=== PATIENT | male | born 1980 | race Caucasian/White ===

== ENCOUNTER 2018-09-12 12:24 | Emergency (ER) | payer SELFPAY ==
[~2018-09-12] VITALS: Ht 170.2 cm; Wt 75.0 kg
[~2018-09-12 12:24] MED LIST: BACTRIM DS1 TAB OR; DOXYCYC MONO100 MG OR; LORTAB 10 OR
[2018-09-12] MEDS ORDERED: PERMETHRIN5 % EX (13:07)
[2018-09-12] MEDS ORDERED: CEPHALEXIN500 M1 PO (13:07)
[2018-09-12 13:37] VITALS: BP 141/97
== END 2018-09-12 13:37 | disposition home or self-care (01) | DRG 607 ==
LOC: ED 12:24
DX: B86 Scabies (principal); L03.114 Cellulitis of left upper limb; L03.113 Cellulitis of right upper limb; F17.200 Nicotine dependence, unspecified, uncomplicated

== ENCOUNTER 2018-09-18 09:51 | Emergency (ER) | payer SELFPAY ==
[~2018-09-18] VITALS: Ht 170.2 cm; Wt 70.0 kg
[~2018-09-18 09:51] MED LIST changes: +CEPHALEXIN500 M1 PO; +PERMETHRIN5 % EX
[2018-09-18] MEDS ORDERED: AMOXICILLIN500 MG PO (10:01)
[2018-09-18 10:11] VITALS: BP 120/76
== END 2018-09-18 10:14 | disposition home or self-care (01) | DRG 603 ==
LOC: ED 09:51
DX: L01.00 Impetigo, unspecified (principal); F17.200 Nicotine dependence, unspecified, uncomplicated

== ENCOUNTER 2019-09-22 17:51 | Observation (INO) | payer SELFPAY ==
[~2019-09-22] VITALS: Ht 170.2 cm; Wt 66.1 kg
[~2019-09-22 17:51] MED LIST changes: +AMOXICILLIN500 MG PO
--- NOTE | 2019-09-22 18:01 | NUR ---
PATIENT AMBULATED TO ROOM WITH STEADY GAIT AND PHYSICIAN NOTIFIED OF PATIENT STATUS
--- NOTE | 2019-09-22 18:10 | NUR ---
IV INITATED AND LABS COLLECTED. PT REPORTS INTERMITTENT RIGHT FLANK PAIN WITH NAUSEA AND VOMITING AFTER BEOMING OVERHEATED YESTERDAY. HE ALSO STATES THAT HIS VOMIT WAS BLOODY WHEN ASKED HE STATED IT WAS BROWN IN COLOR. PT WAS UPDATED ON REMAINING NPO AND NEED FOR URINE SAMPLE. PT IS UNABLE TO URINATE AT THIS THIS TIME. CALL FLOREZ WITHIN REACH, WILL CONTINUE TO MONITOR.
[2019-09-22 18:28] LABS: HEMATOCRIT 45.8 % (39.0-50.0); HEMOGLOBIN 15.2 g/dl (14.0-18.0); IMMATURE GRANULOCYTES 0.4 % (0.0-5.0); MEAN CELL VOLUME 86.3 fL CALC (80.0-100.0); MEAN CORPUSCULAR HGB 28.6 pG CALC (26.0-32.0); MEAN CORPUSCULAR HGB CONC 33.2 g/dL CAL (32.0-36.0); NEUT# 10.43 thou/uL (1.82-7.42); RED BLOOD COUNT 5.31 mill/uL (4.70-6.10)
--- NOTE | 2019-09-22 18:44 | NUR ---
PT RESTING IN STRETCHER IN NAD AND DENIES ANY NAUSEA OR NEEDS AT THIS TIME. CALL FLOREZ WITHIN REACH.
--- NOTE | 2019-09-22 18:49 | NUR ---
PT REPORT TO TRAVIS SANCHES.
--- NOTE | 2019-09-22 18:51 | NUR ---
HAND OFF REPORT RECEIVED, PATIENT AWAKE AND ALERT, NO C/O PAIN OR DISCOMFORT, NO S/S OF DISTRESS, RESPIRATIONS EVEN AND UNLABORED, AWAITING URINE SAMPLE.
--- NOTE | 2019-09-22 19:02 | NUR ---
PATIENT STATES UNABLE TO PRODUCE URINE SAMPLE AT THIS TIME.
[2019-09-22 19:06] LABS: ALBUMIN 5.1 g/dL (3.2-5.0); BILIRUBIN, TOTAL 0.6 mg/dL (0.0-1.4); POTASSIUM 4.7 mmol/l (3.5-5.1); TOTAL PROTEIN 9.2 g/dL (6.3-8.2)
[2019-09-22 19:16] LABS: CREATININE 6.7 mg/dL (0.7-1.3)
[2019-09-22 19:20] LABS: URINE BILIRUBIN - DIPSTICK NEGATIVE (NEGATIVE); URINE BLOOD DIPSTICK LARGE (NEGATIVE); URINE COLOR YELLOW; URINE GLUCOSE - DIPSTICK NEGATIVE (NEGATIVE); URINE KETONE NEGATIVE (NEGATIVE); URINE LEUK ESTERASE NEGATIVE (NEGATIVE); URINE NITRITE - DIPSTICK NEGATIVE (Negative); URINE PROTEIN - DIPSTICK 100 mg/dL (NEG-TRACE); URINE SPECIFIC GRAVITY >=1.030; URINE UROBILINOGEN - DIPSTICK 0.2 E.U./dL (0.2)
[2019-09-22 19:31] LABS: URINE AMORPH SEDIMENT FEW hpf (NONE-FER); URINE RBC TNTC RBC/hpf (0-5); URINE SQUAMOUS EPITHELIAL CELL FEW EPI/hpf (0-FEW)
--- NOTE | 2019-09-22 20:18 | NUR ---
RESTING QUIETLY WITH EYES CLOSED, RESPIRATIONS EVEN AND UNLABORED, NO C/O PAIN OR DISCOMFORT, NO S/S OF DISTRESS NOTED, LIGHTS DIMMED FOR COMFORT, PO FLUIDS GIVEN AT PATIENT REQUEST.
[2019-09-22 20:35] LABS: CPK 1554 u/l (52-200)
--- NOTE | 2019-09-22 20:56 | NUR ---
PATIENT AWAITING DIAGNOSTIC RESULTS FOR INPATIENT ROOM ASSIGNMENT
[2019-09-22 21:04] LABS: MYOGLOBIN 4936 ng/mL (0 - 121)
--- NOTE | 2019-09-22 21:08 | NUR ---
ATTEMPTED TO GIVE REPORT TO INPATIENT NURSE, NURSE UNAVAILABLE AT THIS TIME.
--- NOTE | 2019-09-22 21:45 | NUR ---
HAND OFF REPORT GIVEN TO TRAVIS SCHMITT FOR [id number]
[2019-09-22 21:50] VITALS: BP 144/88
--- NOTE | 2019-09-22 21:52 | NUR ---
PT ARRIVED TO MED SURG UNIT VIA STRETCHER ACCOMPANIED BY ED NURSE. PT APPEARS TO BE IN STABLE CONDITION. PT SELF AMBULATED TO BED FROM STRETCHER. IV FLUIDS ARE RUNNING, ALMOST COMPLETE TO 20 IN RAC/SITE APPEARS HEALTHY. V/S ARE BEING ASSESSED, PT ORIENTED TO ROOM, CALL SYSTEM, LIGHTS AND BED.
--- NOTE | 2019-09-22 22:00 | NUR ---
PATIENT TAKEN TO INPATIENT ROOM 269 VIA STRETCHER, AWAKE AND ALERT, NO C/O PAIN OR DISCOMFORT, NO S/S OF DISTRESS, AMBULATORY WITHOUT ASSITANCE TO INPATIENT BED. Admission Note Report Given to: KESHIA Transported by: Wheelchair X Stretcher Transported with: X Nurse Transporter X Patent IV O2 Reroller Hand Location: ICU X MS2
--- NOTE | 2019-09-22 22:10 | NUR ---
URINAL EMPTIED OF 200CC OF YELLOW URINE. PT ASKING FOR FOOD/PROVIDED. PT REPORTS DRINKING COKE AT BEDSIDE W/OUT NAUSEA OR VOMITING. DISCUSSED DIET AND HISTORY OF VOMITING OVER THE LAST DAY REPORTED BY PT, VERBALIZED UNDERSTANDING AND ASKED FOR FOOD AND DRINK REGARDLESS. PT LOC TO CIRCUMSTANCES AND IS STABLE ON FEET. DENIES PAIN/N/V AND REPORTS "FEELING MUCH BETTER," SINCE ARRIVING TO THE HOSPITAL. IV FLUIDS ADMINISTERED.
--- NOTE | 2019-09-22 23:38 | NUR ---
PT ASKING FOR NEW IV SITE. REPORTS THE EXISTING SITE IS "SORE" SITE APPEARS HEALTHY, BUT PT REPORTS THAT IT HURTS WHEN HE BENDS HIS ARM. NEW SITE ACCESSED BY SUBSTATION SUPERVISOR TASKING ON FLOOR AND OLD SITE REMOVED. PT DENIES ANY OTHER NEEDS AT THIS TIME. CALL LIGHT IN HAND.
--- NOTE | 2019-09-23 03:45 | NUR ---
PT CALLED FOR BANDAIDE FOR A SMALL SCRATCH. CONTENT ASSISTANT OBTAINING V/S AT THIS TIME. DENIES ANY OTHER DISTRESSES OR NEEDS.
[2019-09-23 04:00] VITALS: BP 125/71
[2019-09-23 04:43] LABS: IMMATURE GRANULOCYTES 0.3 % (0.0-5.0); MEAN CELL VOLUME 85.7 fL CALC (80.0-100.0); MEAN CORPUSCULAR HGB 28.9 pG CALC (26.0-32.0); MEAN CORPUSCULAR HGB CONC 33.7 g/dL CAL (32.0-36.0); NEUT# 5.65 thou/uL (1.82-7.42); RED BLOOD COUNT 3.84 mill/uL (4.70-6.10); RED CELL DISTRI WIDTH 14.1 % (11.5-15.5)
[2019-09-23 04:51] LABS: HEMATOCRIT 32.9 % (39.0-50.0); HEMOGLOBIN 11.1 g/dl (14.0-18.0)
[2019-09-23 05:02] LABS: CREATININE 3.5 mg/dL (0.7-1.3); POTASSIUM 3.3 mmol/l (3.5-5.1)
[2019-09-23 08:04] VITALS: BP 121/71
--- NOTE | 2019-09-23 08:36 | NUR ---
PT IN BED WITH EYES OPEN AND ABLE TO VERBALIZE NEEDS. FLUIDS CONTINUE TO REUN AT 150ML/HR A ND PT TOLERATING WELL. MEAL AND FLUID INTAKE ADEQUATE AND PT DENIES PAIN AND DISCOMFORT. CALL LIGTH IS WITHIN REACH. WILL CONTINUE TO OBSERVE
[2019-09-23 15:00] VITALS: BP 118/73
--- NOTE | 2019-09-23 15:37 | NUR ---
PT SITTING UP IN BED WITH EYES OPEN. ABLE TO VERBALIZE NEEDS. NORMAL SALINE CONTINUES TO RUN AT 150ML/HR AND PT TOLERATES WELL. DENIES PAIN/DISCOMFORT. CONTINENT OF B/B AND AMBUALTES WITH NO ASSIST NEEDED. WILL CONTINUE TO OBSERVE.
--- NOTE | 2019-09-23 18:42 | NUR ---
PT IN BED WITH EYES OPEN AND ABLE TO MAKE NEEDS KNOWN. SKIN WARM TO TOUCH. MEDICATIONS GIVEN AND TOLERATED WELL. CONTINUES ON NORMAL SALINE 0.9% AT 150ML/HR AND TOLERATING WELL. NO RESPIRATORY CONCERNS NOTED. COMPLAINTS OF SORE THROAT AT DINNER AND ENCOURAGED WARM WATER RINSES FOR COMFORT AND WILL CONTINUE TO OBSERVE. AFEBRILE. NO COUGH NOTED. WILL CONTINUE TO OBSERVE.
--- NOTE | 2019-09-23 18:47 | NUR ---
PT EDUCATION DONE WITH PT ON NICOTENE PATCH AND SIDE EFFECTS VERSUS REMOVING PATCH IF HE WILL CONTINUE SMOKING AND HE STATED HE UNDERSTOOD. NICOTINE PATCH ON RIGHT UPPER ARM.
[2019-09-23 19:04] VITALS: BP 138/83
--- NOTE | 2019-09-23 20:15 | NUR ---
PT ASSESSMENT COMPLETED AT THIS TIME. PT LAYING IN BED WATCHING TV. REPORTS MILD "SCRATCHY THROAT FROM THROWING UP THE OTHER DAY." WARM CHICKEN BROTHER PROVIDED FOR COMFORT. PT DENIED ANY NEED FOR MEDICATIONS. IV FLUIDS REPLENISHED AT THIS TIME. NO OTHER S/O DISTRESS OR NEEDS NOTED. PT WAS ENCOURAGED TO CALL NEEDS ARISE, HE VERBALIZED UNDERSTANDING AND HAS CALL LIGHT W/IN REACH.
--- NOTE | 2019-09-24 00:09 | NUR ---
PT SLEEPING, NO S/O DISTRESS NOTED. LIGHTS AND TV ARE ON, BUT PT EYES ARE CLOSED.
--- NOTE | 2019-09-24 02:40 | NUR ---
IVPUMP SOUNDING, IVF REPLENISHED AT THIS TIME. PT PROVIDED BEEF BROTH FOR COMFORT OF "SCRATCHY THROAT". DENIES ANY OTHER NEEDS, ENCOURAGED TO CALL NEEDS MAY ARISE.
[2019-09-24 04:31] VITALS: BP 139/86
[2019-09-24 08:10] VITALS: BP 134/89
[2019-09-24 08:41] LABS: HEMATOCRIT 34.3 % (39.0-50.0); HEMOGLOBIN 11.1 g/dl (14.0-18.0); MEAN CELL VOLUME 88.6 fL CALC (80.0-100.0); MEAN CORPUSCULAR HGB 28.7 pG CALC (26.0-32.0); MEAN CORPUSCULAR HGB CONC 32.4 g/dL CAL (32.0-36.0); RED BLOOD COUNT 3.87 mill/uL (4.70-6.10); RED CELL DISTRI WIDTH 14.6 % (11.5-15.5)
[2019-09-24 10:31] LABS: ANION GAP 8 (6-22 (CALC)); BUN 13 mg/dL (9-20); CARBON DIOXIDE 27 mmol/l (22-30); CHLORIDE 103 mmol/l (95-108); SODIUM 133 mmol/l (137-146)
[2019-09-24 10:34] LABS: BUN/CREATININE RATIO 14 (12-20 (CALC)); CREATININE 0.9 mg/dL (0.7-1.3); GFR > 60 ML/MIN (>=60 (CALC)); GFR FOR AFR.AMER. > 60 ML/MIN (>=60 (CALC)); POTASSIUM 4.5 mmol/l (3.5-5.1)
--- NOTE | 2019-09-24 11:21 | NUR ---
CAROL RECEIVED FROM KESHIA. PT SLEEPING IN BED . AWAKENS TO STIMULI. DENIES PAIN. POC REVIEWED. ENCOURAGED TO VERBALIZE CONCERNS STATES UNDERSTANDING OF SAFETY MEASURES. CALL LIGHT WITHIN REACH.
--- NOTE | 2019-09-24 11:23 | NUR ---
IV site discontinued, cath intact. No edema , no redness, voices no discomfort.
--- NOTE | 2019-09-24 11:36 | NUR ---
Discharge instructions given. Patient verbalizes understanding of same. Discharged in stable condition via Ambulatory to Home with *Other. All belongings sent with pt.
--- NOTE | 2019-09-24 15:04 | NUR ---
Discharge instructions given. Patient verbalizes understanding of same. Discharged in stable condition via 5Ambulatory to Home with staff. All belongings sent with pt.
== END 2019-09-24 11:36 | disposition home or self-care (01) | DRG 683 ==
LOC: ED 17:51 → ED-I 20:20 → ED 20:32 → ED-I 20:33 → MS2 21:00
PROVIDERS: Family Medicine; Internal Medicine; Nurse Practitioner Family; ADMIT Internal Medicine; ATTEND Internal Medicine
DX: N17.9 Acute kidney failure, unspecified (principal); M62.82 Rhabdomyolysis; E86.0 Dehydration; E87.6 Hypokalemia; F11.10 Opioid abuse, uncomplicated; F15.10 Other stimulant abuse, uncomplicated; F16.10 Hallucinogen abuse, uncomplicated; F17.200 Nicotine dependence, unspecified, uncomplicated; X30.XXXA Exposure to excessive natural heat, initial encounter; Z20.828 Contact with and (suspected) exposure to other viral communicable diseases
CPT/HCPCS: G0378; S0164

== ENCOUNTER 2021-07-05 09:57 | Emergency (ER) | payer BC ==
[2021-07-05] VITALS (13 sets, daily range): BP systolic 130–173; BP diastolic 92–119
[~2021-07-05] VITALS: Ht 177.8 cm; Wt 72.0 kg
[2021-07-05 10:32] LABS: HEMATOCRIT 38.8 % (39.0-50.0); HEMOGLOBIN 12.4 g/dl (14.0-18.0); IMMATURE GRANULOCYTES 0.5 % (0.0-5.0); MEAN CORPUSCULAR HGB 30.3 pG CALC (26.0-32.0); NEUT# 2.12 thou/uL (1.82-7.42); RED BLOOD COUNT 4.09 mill/uL (4.70-6.10); RED CELL DISTRI WIDTH 18.5 % (11.5-15.5)
[2021-07-05 10:43] LABS: MEAN CELL VOLUME 94.9 fL CALC (80.0-100.0)
[2021-07-05 10:44] LABS: ALBUMIN 4.1 g/dL (3.2-5.0); ALKALINE PHOSPHATASE 109 u/l (38-126); BILIRUBIN, TOTAL 0.4 mg/dL (0.0-1.4); BUN 15 mg/dL (9-20); BUN/CREATININE RATIO 12 (12-20 (CALC)); CHLORIDE 103 mmol/l (95-108); CREATININE 1.2 mg/dL (0.7-1.3); ETHYL ALCOHOL 191 mg/dl (0-30); GFR > 60 ML/MIN (>=60 (CALC)); GFR FOR AFR.AMER. > 60 ML/MIN (>=60 (CALC)); TOTAL PROTEIN 7.9 g/dL (6.3-8.2)
[2021-07-05 10:45] LABS: ANION GAP 11 (6-22 (CALC)); CARBON DIOXIDE 33 mmol/l (22-30); POTASSIUM 3.3 mmol/l (3.5-5.1); SGOT/AST 323 u/l (17-59); SODIUM 144 mmol/l (137-146)
[2021-07-05] MEDS ORDERED: NARCAN4 MG/0.1 M (16:24)
== END 2021-07-05 16:42 | disposition home or self-care (01) | DRG 918 ==
LOC: ED 09:57
PROVIDERS: Family Medicine
DX: T40.2X1A Poisoning by other opioids, accidental (unintentional), initial encounter (principal); F17.200 Nicotine dependence, unspecified, uncomplicated
CPT/HCPCS: Q9967

== ENCOUNTER 2022-06-09 22:01 | Emergency (ER) | payer OTHER ==
[~2022-06-09] VITALS: Ht 170.2 cm; Wt 68.0 kg
[~2022-06-09 22:01] MED LIST changes: +NARCAN4 MG/0.1 M
[2022-06-09] MEDS ORDERED: VIBRAMYCIN100 M2 PO (22:39)
[2022-06-09 22:57] VITALS: BP 162/112
== END 2022-06-09 23:04 | disposition home or self-care (01) | DRG 605 ==
LOC: ED 22:01
DX: S60.512A Abrasion of left hand, initial encounter (principal); S60.511A Abrasion of right hand, initial encounter; W19.XXXA Unspecified fall, initial encounter; F17.210 Nicotine dependence, cigarettes, uncomplicated

== ENCOUNTER 2022-09-14 01:43 | Emergency (ER) | payer OTHER ==
[~2022-09-14] VITALS: Ht 170.2 cm; Wt 175.0 kg
[~2022-09-14 01:43] MED LIST changes: +VIBRAMYCIN100 M2 PO
[2022-09-14 02:49] LABS: URINE BILIRUBIN - DIPSTICK NEGATIVE (NEGATIVE); URINE BLOOD DIPSTICK NEGATIVE (NEGATIVE); URINE COLOR YELLOW; URINE GLUCOSE - DIPSTICK NEGATIVE (NEGATIVE); URINE KETONE TRACE mg/dL (NEGATIVE); URINE LEUK ESTERASE NEGATIVE (NEGATIVE); URINE PH 5.5 (4.5-8.0); URINE PROTEIN - DIPSTICK 30 mg/dL (NEG-TRACE); URINE SPECIFIC GRAVITY >=1.030; URINE UROBILINOGEN - DIPSTICK 0.2 E.U./dL (0.2)
[2022-09-14 02:51] LABS: URINE NITRITE - DIPSTICK NEGATIVE (Negative)
[2022-09-14 02:55] LABS: URINE BACTERIA FEW hpf; URINE EPITHELIAL CELLS MODERATE EPI/hpf (0-FEW); URINE FINE GRAN CAST FEW lpf; URINE HYALINE CAST FEW lpf (NONE-RARE); URINE MUCUS FEW hpf (NONE-FEW)
[2022-09-14] MEDS ORDERED: AMOXICILLIN500 MG PO (03:06)
[2022-09-14] MEDS ORDERED: LOTRISONE CREAM15 G1 EX (03:06)
[2022-09-14 03:10] VITALS: BP 140/90
== END 2022-09-14 03:10 | disposition home or self-care (01) | DRG 897 ==
LOC: ED 01:43
PROVIDERS: Emergency Medicine
DX: F15.151 Other stimulant abuse with stimulant-induced psychotic disorder with hallucinations (principal); F16.151 Hallucinogen abuse with hallucinogen-induced psychotic disorder with hallucinations; F12.151 Cannabis abuse with psychotic disorder with hallucinations; F11.151 Opioid abuse with opioid-induced psychotic disorder with hallucinations; S60.419A Abrasion of unspecified finger, initial encounter; F17.200 Nicotine dependence, unspecified, uncomplicated; X58.XXXA Exposure to other specified factors, initial encounter